=== PATIENT | female | born 1940 | race Two or more races ===

== ENCOUNTER 2019-03-20 12:25 | Emergency (ER) | payer OTHER ==
[~2019-03-20] VITALS: Ht 154.9 cm; Wt 50.8 kg
[2019-03-20] MEDS ORDERED: AMLODIPINE-OLM1 EAC3 PO (12:40)
[2019-03-20] MEDS ORDERED: LEVO-T75 MCG PO (12:40)
[2019-03-20] MEDS ORDERED: LOSARTAN POTASS50 MG PO (12:40)
== END 2019-03-20 15:58 | disposition home or self-care (01) ==
LOC: ER 12:25
DX: N20.0 Calculus of kidney (principal)